=== PATIENT | male | born 1955 | race Caucasian/White ===

== ENCOUNTER 2022-10-24 00:26 | Day surgery (SDC) | payer MEDICARE, SELFPAY ==
[2022-10-10 13:34] VITALS: BMI 45.7
[2022-10-24 09:59] VITALS: BP 132/78; PULSE 88; RESP 18; TEMP 35.9; O2SAT 99
[2022-10-24] MEDS: LACTATED RINGERS 1,000 ML 150 ML IV CONT (10:17)
--- NOTE | 2022-10-24 10:30 | P.PNAN_ITS ---
Anes - Initial Pre Proc Eval Procedure: Operation Date: 10/24/22 10:45 Proposed Procedures p Colonoscopy - Declan Anand MD Date/Time: 10/24/22 10:30 Surgeon: Declan Anand MD Pre Op Diagnosis: hx colon polyps, family hx colon polyps Patient Data Age: 67 Gender: M Height: 1.73 m Weight: 129 kg Last Vital Signs Temp 35.9 C L 10/24/22 09:59 Pulse 88 10/24/22 09:59 Resp 18 10/24/22 09:59 BP 132/78 10/24/22 09:59 Pulse Ox 99 10/24/22 09:59 O2 Del Method Room Air 10/24/22 09:59 Allergies Allergy/AdvReac Type Severity Reaction Status Date / Time No Known Allergies Allergy Mild Verified 10/24/22 09:56 Home Medications Medication Instructions Recorded Confirmed Type atorvastatin 20 mg tablet 20 mg PO DAILY 10/10/22 10/24/22 History levothyroxine 50 mcg tablet 50 mcg PO DAILY 10/10/22 10/24/22 History lisinopril 10 mg tablet 10 mg PO DAILY 10/10/22 10/24/22 History omeprazole 40 mg capsule,delayed 40 mg PO DAILY 10/10/22 10/24/22 History release Patient hx anesthesia problems: none Family hx anesthesia problems: none Results Review: All pre-operative results and documents have been reviewed as part of the pre- operative evaluation. [facility] Past Medical History Medical History (Updated 10/24/22 @ 10:31 by Agustín Eid MD) Ex-smoker Obesity DEEPAK on CPAP Throat cancer Surgical History Surgical History (Updated 10/24/22 @ 10:31 by Agustín Eid MD) History of radical neck dissection Social History Social History Smoking status: Former smoker Tobacco type: cigarettes Alcohol intake: current Drinks per week: 10 Substance use: never Substance use type: does not use Living arrangements: alone Spiritual care concerns: No Anes - Eval Final PreProcedure Day of Procedure 10/24/22 10:30 Patient weight: morbidly obese Heart: regular rate and rhythm Lungs: clear to auscultation Airway: Mallampati scale class II and other (left radical neck dissection) Neurological: alert and oriented Last oral intake: >/= 8 hours ASA classification: III Emergent: no Anesthetic plan: proceed Anesthesia type and monitoring: general GIVS and standard monitoring Results Review: All pre-operative results and documents have been reviewed as part of the pre- operative evaluation. Informed Consent: The patient's anesthetic plan and its attendant risks and benefits were discussed with the patient/family/POA. Questions were solicited and answers provided to the satisfaction of the patient/family/POA.
--- NOTE | 2022-10-24 10:36 | PM.HPGS ---
History of Present Illness History of Present Illness Consent: Risks, benefits, and alternatives have been discussed and questions answered. Patient agrees to proceed with procedure. Chief complaint: hx colon polyps, family hx colon polyps Narrative: Brant Dove is a 67 year old male Presents for screening colonoscopy. Patient's previous colonoscopy revealed adenomatous colon polyps 6 years ago. Patient states that his current weight appetite and bowel movements are normal. Patient denies abdominal pain. He has had no bleeding. Family history Is significant for colon polyps. Review of Systems Review of Systems: Review of systems noncontributory. [facility] Past Medical History Medical History (Updated 10/24/22 @ 10:38 by Declan Anand MD) Ex-smoker Obesity DEEPAK on CPAP Throat cancer Surgical History Surgical History (Updated 10/24/22 @ 10:31 by Agustín Eid MD) History of radical neck dissection Social History Social History Smoking status: Former smoker Tobacco type: cigarettes Alcohol intake: current Drinks per week: 10 Substance use: never Substance use type: does not use Living arrangements: alone Spiritual care concerns: No Meds Home Medications and Allergies Home Medications Medication Instructions Recorded Confirmed Type atorvastatin 20 mg tablet 20 mg PO DAILY 10/10/22 10/24/22 History levothyroxine 50 mcg tablet 50 mcg PO DAILY 10/10/22 10/24/22 History lisinopril 10 mg tablet 10 mg PO DAILY 10/10/22 10/24/22 History omeprazole 40 mg capsule,delayed 40 mg PO DAILY 10/10/22 10/24/22 History release Allergies Allergy/AdvReac Type Severity Reaction Status Date / Time No Known Allergies Allergy Mild Verified 10/24/22 09:56 Vital Signs Vital Signs - 24 hr 10/24/22 09:59 Temperature 96.7 F L Pulse Rate 88 Respiratory Rate 18 Blood Pressure 132/78 Pulse Oximetry 99 Oxygen Delivery Room Air Exam Narrative: Physical exam reveals patient to be alert. Vital signs stable. HEENT exam is unremarkable. Patient has evidence of healing of previous neck dissection surgery. Patient is anicteric. Lungs are clear to auscultation and percussion. Heart is without murmur or extra sounds. Abdomen bowel sounds are present soft nontender with no hepatosplenomegaly. Digital external rectal exam normal. Assessment and Plan Assessment and plan (1) History of colon polyps: Code(s): Z86.010 - Personal history of colonic polyps Status: Acute Assessment and Plan: Patient found to have a benign colon polyp at the time of previous colonoscopy in 2017. Plan for surveillance colonoscopy now and consider this a 5 year intervals. (2) Family history of colonic polyps: Code(s): Z83.71 - Family history of colonic polyps Status: Acute
[2022-10-24 11:08] VITALS: BP 105/56; PULSE 70; RESP 20; O2SAT 97
[2022-10-24 11:18] VITALS: BP 123/73; PULSE 72; RESP 20; O2SAT 98
[2022-10-24 11:28] VITALS: BP 137/81; PULSE 68; RESP 20; O2SAT 99
== END 2022-10-24 11:40 | disposition home or self-care (01) ==
PROVIDERS: PCP Nurse Practitioner Family; Visit Provider Internal Medicine Gastroenterology
PROC: 0DJD8ZZ Inspection of Lower Intestinal Tract, Via Natural or Artificial Opening Endoscopic (ICD-10-PCS; CPT 45378; principal; 2022-10-24 10:45)
DX: Z12.11 Encounter for screening for malignant neoplasm of colon (principal); D12.0 Benign neoplasm of cecum; D12.2 Benign neoplasm of ascending colon; D12.8 Benign neoplasm of rectum; D17.5 Benign lipomatous neoplasm of intra-abdominal organs; K64.8 Other hemorrhoids; K57.30 Diverticulosis of large intestine without perforation or abscess without bleeding; Z85.819 Personal history of malignant neoplasm of unspecified site of lip, oral cavity, and pharynx; Z83.71 Family history of colonic polyps; Z68.41 Body mass index [BMI] 40.0-44.9, adult; G47.33 Obstructive sleep apnea (adult) (pediatric); Z87.891 Personal history of nicotine dependence; E66.01 Morbid (severe) obesity due to excess calories
CPT/HCPCS: 45385; 88305; J2704; J7120